=== PATIENT | female | born 1965 | race Caucasian/White ===

== ENCOUNTER → 2023-04-30 | Emergency (ER) | payer BC ==
[~2023-04-30] VITALS: Ht 167.6 cm; Wt 49.0 kg
[~2023-04-30] MED LIST: ALPRAZOLAM1 MG; BUPRENORP-NALO1 EACH; BUTALB-ACETAMI1 EACH PO; BUTALBITAL-ACE1 EAC1 PO; BUTALBITAL-ACE1 EAC2 PO; GABAPENTIN600 MG; LISINOPRIL10 MG; VISTARIL50 MG PO; ZOFRAN8 MG PO
== END | disposition home or self-care (01) ==
LOC: ER 09:37
DX: G43.909 Migraine, unspecified, not intractable, without status migrainosus (principal); Z88.2 Allergy status to sulfonamides; Z88.8 Allergy status to other drugs, medicaments and biological substances

== ENCOUNTER 2023-05-02 16:13 | Emergency (ER) | payer OTHER ==
[~2023-05-02] VITALS: Ht 152.4 cm; Wt 49.9 kg
[~2023-05-02 16:13] MED LIST changes: -ALPRAZOLAM1 MG; -BUPRENORP-NALO1 EACH; -BUTALBITAL-ACE1 EAC2 PO; -GABAPENTIN600 MG; -LISINOPRIL10 MG; -VISTARIL50 MG PO
[2023-05-02] MEDS ORDERED: ALPRAZOLAM1 MG (19:23)
[2023-05-02] MEDS ORDERED: GABAPENTIN600 MG (19:23)
[2023-05-02] MEDS ORDERED: LISINOPRIL10 MG (19:24)
[2023-05-02] MEDS ORDERED: BUPRENORP-NALO1 EACH (19:25)
[2023-05-02] MEDS ORDERED: VISTARIL50 MG PO (20:01)
== END 2023-05-02 20:24 | disposition home or self-care (01) ==
LOC: ER 16:13
DX: F41.8 Other specified anxiety disorders (principal); Z88.2 Allergy status to sulfonamides

== ENCOUNTER 2023-05-04 15:49 | Emergency (ER) | payer BC ==
[~2023-05-04] VITALS: Ht 170.2 cm; Wt 49.4 kg
[~2023-05-04 15:49] MED LIST changes: +ALPRAZOLAM1 MG; +BUPRENORP-NALO1 EACH; +GABAPENTIN600 MG; +LISINOPRIL10 MG; +VISTARIL50 MG PO
[2023-05-04] MEDS ORDERED: BUTALBITAL-ACE1 EAC2 PO (16:28)
== END 2023-05-04 19:21 | disposition home or self-care (01) ==
LOC: ER 15:49
DX: F41.8 Other specified anxiety disorders (principal); Z88.2 Allergy status to sulfonamides